=== PATIENT | female | born 1975 | race Caucasian/White ===

== ENCOUNTER → 2022-02-02 06:52 | Outpatient (CLI) | payer BC, SELFPAY ==
--- NOTE | ~2022-02-02 | MR_ITS ---
EXAMINATION: MR knee RT wo con DATE: 02/02/2022 07:29 INDICATION: Chronic right knee pain. TECHNIQUE: Magnetic resonance imaging (MRI) of the right knee was performed without intravenous contr ast. Sequences included axial PD-weighted FS FSE, coronal PD-weighted FSE and PD-weighted FS FSE, sag ittal PD-weighted FSE, and sagittal T2-weighted FS FSE. COMPARISON: None. FINDINGS: Medial compartment: Medial meniscus is normal. There is partial-thickness cartilage loss of tibial condyle, deep at the c entral articular surface where there is cartilage undermining. There is partial-thickness cartilage l oss of femoral condyle, deep at the central articular surface. Osteophytes are noted. Lateral compartment: Lateral meniscus is normal. There is shallow partial-thickness cartilage loss of tibial condyle and f emoral condyle. There is increased signal in cartilage of femoral condyle involving the central artic ular surface, consistent with softening. Osteophytes are noted. Patellofemoral compartment: There is partial-thickness cartilage loss of patella, deep at the median ridge and lateral facet. The re is deep partial thickness cartilage loss of medial, central, and lateral trochlea. Osteophytes are noted. Ligaments and tendons: Anterior cruciate ligament is thickened with increased signal, likely mucoid degeneration. Posterior cruciate ligament is normal. Medial collateral ligament and lateral collateral ligament complex are n ormal. There is moderate distal patellar tendinopathy. Fluid: There is a small knee joint effusion. IMPRESSION: 1. Moderate chondrosis of medial and patellofemoral compartments and mild chondrosis of lateral nick rtment. 2. Thickening and increased signal involving anterior cruciate ligament, likely mucoid degeneration. 3. Small knee joint effusion. Reviewed, dictated and finalized at location A. IMPRESSION: 1. Moderate chondrosis of medial and patellofemoral compartments and mild chond rosis of lateral compartment. 2. Thickening and increased signal involving anterior cruciate ligament, likely mucoid degeneration. 3. Small knee joint effusion.
== END ==
PROVIDERS: PCP Family Medicine; Visit Provider Physician Assistant
DX: M25.461 Effusion, right knee (principal)
CPT/HCPCS: 73721